=== PATIENT | female | born 1945 | race Caucasian/White ===

== ENCOUNTER 2018-04-24 07:00 | Inpatient (IN) | payer MEDICARE ==
[2018-04-21 13:24] LABS: BASOPHILS # (AUTO) 0.1 (0.0-0.1); BASOPHILS % 0.7 % (0.0-1.0); EOSINOPHILS # (AUTO) 0.3 (0.0-0.4); EOSINOPHILS % 3.6 % (0.0-6.0); HEMATOCRIT 37.4 % (34.2-44.1); HEMOGLOBIN 12.1 g/dL (12.0-16.0); LYMPHOCYTES # (AUTO) 1.3 (1.0-3.2); MEAN CORPUSCULAR HEMOGLOBIN 30.3 pg (28-32); MEAN CORPUSCULAR HGB CONC 32.4 g/dL (31-35); MEAN CORPUSCULAR VOLUME 93.7 fL (81-99); MONOCYTES # (AUTO) 0.5 (0.2-0.8); MONOCYTES % 7.5 % (4.4-11.3); NEUTROPHILS # (AUTO) 4.8 (2.1-6.9); NEUTROPHILS % 68.9 % (38.7-80.0); PLATELET COUNT 339 x10e3/uL (140-360); RED BLOOD COUNT 3.99 x10e6/uL (3.6-5.1); RED CELL DISTRIBUTION WIDTH 12.8 % (11.7-14.4)
[2018-04-21 13:47] LABS: ANION GAP 15.5 mmol/L (8-16); CALCIUM 10.2 mg/dL (8.4-10.2); CREATININE, SERUM 1.03 mg/dL (0.57-1.11); POTASSIUM 3.5 mmol/L (3.5-5.1)
--- NOTE | 2018-04-21 14:35 | Diagnostic Imaging Report ---
EXAMINATION: CHEST 2 VIEWS INDICATION: \S\PER PROTOCOL \S\[id number] \S\1230 \S\PRE ADMIT COMPARISON: None FINDINGS: PA and lateral views TUBES and LINES: None. LUNGS: Lungs are well inflated. Lungs are clear. There is no evidence of pneumonia or pulmonary edema. PLEURA: No pleural effusion or pneumothorax. HEART AND MEDIASTINUM: The cardiomediastinal silhouette is unremarkable. BONES AND SOFT TISSUES: No acute osseous lesion. Degenerative changes of thoracic spine. Right diaphragmatic eventration. UPPER ABDOMEN: No free air under the diaphragm. IMPRESSION: No acute thoracic abnormality. Signed by: Dr. Cesar Delgado MD on 04/21/2018 2:31 PM
[~2018-04-24] VITALS: Ht 172.7 cm; Wt 61.8 kg
[~2018-04-24 07:00] MED LIST: HYDROCHLOROTHIA25 MG PO; LEVOTHYROXINE75 MCG PO; MELOXICAM7.5 MG PO; NASOCORT; OMEPRAZOLE40 MG PO; ROPIVACAINE 246.25 MG, EPINEPHRINE HCL 1:1000 0.5 MG, CLONIDINE HCL 0.08 MG, KETOROLAC ... INJ ONE; ZYRTEC-D TABLE1 EACH PO
[2018-04-24] MEDS ORDERED: DEXAMETHASONE SOD PHOS 10 MG/1 ML VIAL ONE (07:20)
[2018-04-24] MEDS ORDERED: CELECOXIB 200 MG CAP ONE (07:20)
[2018-04-24] MEDS ORDERED: CEFAZOLIN SOD 2 GM/D5W 50ML 50 ML IV ONE (07:21)
[2018-04-24] MEDS ORDERED: GABAPENTIN 300 MG CAP ONE (07:21)
[2018-04-24] MEDS ORDERED: TRANEXAMIC ACID 1,000 MG/10 ML ML ONE (08:29)
[2018-04-24] MEDS ORDERED: BACITRACIN 50,000 UNIT VIAL ONE (08:30)
[2018-04-24] MEDS ORDERED: BUPIVACAINE 7.5MG/ML /DEXTROSE 82.5MG/ML 2 ML AMP INJ ONE (08:47)
[2018-04-24] MEDS ORDERED: ONDANSETRON HCL INJ 2 MG/ML VIAL IV PRN (10:45)
[2018-04-24] MEDS ORDERED: DOCUSATE SODIUM 100 MG CAP PO PRN (10:45)
[2018-04-24] MEDS ORDERED: DIPHENHYDRAMINE HCL INJ 50 MG/ML VIAL IM/IV PRN (10:45)
[2018-04-24] MEDS ORDERED: KETOROLAC TROMETHAMINE 30 MG/ML VIAL IV PRN (10:45)
[2018-04-24] MEDS ORDERED: ACETAMINOPHEN 650 MG SUPP PR PRN (10:45)
[2018-04-24] MEDS ORDERED: HYDROCODONE/APAP 5MG-325MG TAB PO PRN (10:45)
[2018-04-24] MEDS ORDERED: PROMETHAZINE HCL (IM) 25 MG/ML VIAL IM PRN (10:45)
[2018-04-24] MEDS ORDERED: HYDROCODONE/APAP 7.5MG-325MG 1 EA TAB PO PRN (10:45)
--- NOTE | 2018-04-24 11:46 | Diagnostic Imaging Report ---
PROCEDURE:X-RAY PELVIS, AP VIEW COMPARISON:None. INDICATIONS:LEFT HIP SURGERY POST OP TODAY FINDINGS: Limited by body habitus. Postsurgical changes of left hip arthroplasty, marked by mild soft tissue swelling, minimal emphysema, and skin kristin. Partially imaged tubular structure, may represent a surgical drain. Hardware is intact. CONCLUSION: Postsurgical changes of left hip arthroplasty. Hardware is intact. Dictated by: Cesar Delgado M.D. on 04/24/2018 at 11:47 Electronically approved by: Cesar Delgado M.D. on 04/24/2018 at 11:47
--- NOTE | 2018-04-24 12:00 | Operative Report ---
DATE OF PROCEDURE: April 24, 2018 EMPLOYEE COUNSELOR: Gianni Harkins PA-C The patient was brought to the operating room for induction of anesthesia. Throughout this case, my PA's assistance was necessary for retraction of soft tissue and positioning of the extremity. This allows for efficient and technically successful execution of the operation and is considered medically necessary. PREOPERATIVE DIAGNOSES 1. Osteoarthritis, left hip. 2. Morbid obesity. POSTOPERATIVE DIAGNOSES 1. Osteoarthritis, left hip. 2. Morbid obesity. PROCEDURE: Left total hip arthroplasty, *added complexity secondary to morbid obesity. INDICATIONS: The patient is a 72-year-old lady with end-stage arthritis of her left hip. This has progressed to where she has to use a walker or a wheelchair to get around. She is severely obese and has limited mobility. She was unable to even get a weight in our office. The findings and options have been discussed. She would like to proceed with a left total hip replacement. The added complexity and risk for perioperative complications due to her obesity and limited mobility have been explained. She states she understands and feels like she has no other choice. She wishes to proceed. DESCRIPTION OF PROCEDURE: The patient was brought to the operating room and given a spinal anesthetic. This took a great deal of time due to her body habitus. She was placed under a light general anesthetic and positioned in the right lateral decubitus position. Again, added time and personnel were necessary due to the patient's obesity. Her left hip was prepped and draped in a sterile manner. A preoperative time out was performed. A more extensile than typical approach was made to the left hip. Abundant subcutaneous adipose tissue was encountered. Hemostasis was obtained with electrocautery. A deep self-retaining Charnley retractor was placed. Care was taken to avoid injury to the sciatic nerve. Additional time was necessary due to the deep and altered surgical field. The posterior capsule and short external rotators were released. Attention was applied towards maintaining hemostasis. The hip was dislocated, and an oscillating saw was used to resect the femoral head. Acetabular retractors were carefully placed. The labral remnant was removed. A 44-mm reamer was used to establish the true floor of the acetabulum. The socket was then sequentially reamed up to 53 mm. Hemispherical bleeding cancellous bone was accomplished. The hip was thoroughly irrigated with a shower-tip pulsatile lavage. A portion of a 100 mL premixed pericapsular CANDI injection was placed around the soft tissue. A Wolf [employer]omet 54 mm outer diameter OsseoTi socket was then impacted into place. Fixation was augmented with 2 cancellous screws placed into the ilium. A highly cross-linked polyethylene liner with a 36 mm inner diameter was then impacted into place. Care was taken to make sure that there was no evidence of soft-tissue interposition. The socket was packed with a lap sponge, and attention was directed towards the proximal femur. The [employer] Taperloc broaches were impacted. A size 14 stem had good canal fill and stability for trial reductions. A standard 36-mm head and neck were felt to provide appropriate soft-tissue balancing, pentecostal of limb length and stability and a full arc of motion. The trial implants were removed. The remainder of the pericapsular injection was placed into the soft tissue. The implant was seated, and the head was impacted onto the stem. A final reduction was performed. Once again, the hip was put through a full arc of motion and noted to have good stability. The posterior capsule was carefully repaired with #2 Ethibond stitches. The tensor fascia and gluteal fascia were closed with interrupted #2 Ethibond. The skin was carefully closed with subcuticular Vicryl and kristin. A sterile Prevena wound VAC was placed due to abundant subcutaneous adipose tissue. The patient was returned to the supine position. She was extubated and transported to the recovery room in stable condition. Blood loss was approximately 150 mL. All needle and sponge counts were correct. Job#: [id number]
[2018-04-24 12:50] VITALS: BP 130/65
[2018-04-24] MEDS ORDERED: CEFAZOLIN SOD 1 GM/D5W 50ML 50 ML IV SCH (14:00)
[2018-04-24 14:15] VITALS: BP 130/65
[2018-04-24] MEDS ORDERED: POTASSIUM CHLORIDE 20 MEQ TAB CR PO ONE (14:45)
[2018-04-24] MEDS: ACETAMINOPHEN 1000 MG/100 ML IV SCH ×3 (14:50→20:12)
[2018-04-24] MEDS: SODIUM CHLORIDE 0.9% 1000ML 1,000 ML IV SCH (14:55)
[2018-04-24 16:13] VITALS: BP 104/59
[2018-04-24] MEDS ORDERED: CELECOXIB 100 MG CAP PO SCH (17:00)
[2018-04-24] MEDS: ASPIRIN 325 MG TAB PO SCH (17:10)
[2018-04-24] MEDS: CEFAZOLIN SOD 1 GM VIAL IV SCH (17:10)
[2018-04-24] MEDS: CELECOXIB 200 MG CAP PO SCH (17:10)
[2018-04-24] MEDS ORDERED: LIDOCAINE HCL 2% LOCAL INJ 5 ML SDV VIAL INJ ONE (17:38)
[2018-04-24] MEDS ORDERED: PHENYLEPHRINE HCL 1% 10 MG/ML VIAL ONE (17:38)
[2018-04-24] MEDS ORDERED: PROPOFOL IV EMULSION 10 MG/ML 20 ML VIAL ONE (17:38)
[2018-04-24] MEDS ORDERED: EPHEDRINE SULFATE INJ 50 MG/10 ML SYR ONE (17:38)
[2018-04-24] MEDS ORDERED: ONDANSETRON HCL INJ 2 MG/ML VIAL ONE (17:38)
[2018-04-24] MEDS ORDERED: SEVOFLURANE INHAL SOLN 250 ML PEN BTL ONE (17:38)
[2018-04-24] MEDS ORDERED: MIDAZOLAM HCL 2 MG/2 ML VIAL ONE (17:41)
[2018-04-24] MEDS ORDERED: FENTANYL CITRATE/PF 100MCG/2 ML INJ ONE (17:41)
[2018-04-24 20:00] VITALS: BP 121/59
[2018-04-24] MEDS ORDERED: ZOLPIDEM TARTRATE 5 MG TAB PO PRN (21:00)
[2018-04-25] VITALS: BP 111/55
[2018-04-25] MEDS: ACETAMINOPHEN 1000 MG/100 ML IV SCH ×2 (01:00→05:02)
[2018-04-25] MEDS: SODIUM CHLORIDE 0.9% 1000ML 1,000 ML IV SCH ×2 (01:39→08:46)
[2018-04-25] MEDS: CEFAZOLIN SOD 1 GM VIAL IV SCH ×2 (02:14→08:46)
[2018-04-25 04:00] VITALS: BP 118/60
[2018-04-25 05:40] LABS: HEMATOCRIT 28.1 % (34.2-44.1); HEMOGLOBIN 9.3 g/dL (12.0-16.0); LYMPHOCYTES # (AUTO) 0.5 (1.0-3.2); LYMPHOCYTES % 4.2 % (18.0-39.1); MEAN CORPUSCULAR HEMOGLOBIN 31.1 pg (28-32); MEAN CORPUSCULAR HGB CONC 33.1 g/dL (31-35); MONOCYTES # (AUTO) 0.7 (0.2-0.8); MONOCYTES % 6.8 % (4.4-11.3); NEUTROPHILS # (AUTO) 9.6 (2.1-6.9); NEUTROPHILS % 88.4 % (38.7-80.0); PLATELET COUNT 239 x10e3/uL (140-360); RED BLOOD COUNT 2.99 x10e6/uL (3.6-5.1); RED CELL DISTRIBUTION WIDTH 12.6 % (11.7-14.4)
[2018-04-25] MEDS ORDERED: LEVOTHYROXINE SODIUM 75 MCG TAB PO SCH (06:00)
[2018-04-25 06:16] LABS: ALBUMIN/GLOBULIN RATIO 1.1 (0.8-2.0); ANION GAP 12.8 mmol/L (8-16); CALCIUM 8.7 mg/dL (8.4-10.2); CREATININE, SERUM 1.27 mg/dL (0.57-1.11); POTASSIUM 3.8 mmol/L (3.5-5.1)
[2018-04-25 07:44] VITALS: BP 106/57
[2018-04-25] MEDS: ASPIRIN 325 MG TAB PO SCH (08:46)
[2018-04-25] MEDS: CELECOXIB 200 MG CAP PO SCH (08:47)
[2018-04-25] MEDS ORDERED: ACETAMINOPHEN 1000 MG/100 ML IV PRN (10:45)
[2018-04-25 12:35] VITALS: BP 115/55
[2018-04-25] MEDS ORDERED: ASPIRIN325 MG PO (13:17)
== END 2018-04-25 15:56 | disposition home health service (06) | DRG 470 ==
LOC: OR 07:00 → PACU V 10:40 → MED/SURG 12:39
PROVIDERS: ADMIT Specialist; ATTEND Specialist
PROC: 0SRB04A Replacement of Left Hip Joint with Ceramic on Polyethylene Synthetic Substitute, Uncemented, Open Approach (ICD-10-PCS; principal; 2018-04-24 09:00)
DX: M16.12 Unilateral primary osteoarthritis, left hip (principal); I10 Essential (primary) hypertension; E03.9 Hypothyroidism, unspecified; E78.00 Pure hypercholesterolemia, unspecified; R94.31 Abnormal electrocardiogram [ECG] [EKG]; J44.9 Chronic obstructive pulmonary disease, unspecified; I25.10 Atherosclerotic heart disease of native coronary artery without angina pectoris; I25.2 Old myocardial infarction; E66.01 Morbid (severe) obesity due to excess calories; Z68.20 Body mass index [BMI] 20.0-20.9, adult
CPT/HCPCS: 36415; 71046; 72170; 80048; 80053; 84132; 85025; 86850; 86900; 86920; J0171; J0690; J1100; J1885; J2001; J2250; J2370; J2405; J2795; J7030